=== PATIENT | male | born 1960 | race Caucasian/White ===

== ENCOUNTER 2018-10-09 07:05 | Day surgery (SDC) | payer BC ==
[~2018-10-09] VITALS: Ht 180.3 cm; Wt 99.8 kg
[2018-10-09] MEDS ORDERED: ONDANSETRON HCL 4 MG/2 ML VIAL IVP ONE (09:00)
[2018-10-09] MEDS ORDERED: fentaNYL CITRATE/PF 100 MCG/2 ML AMP IVP ONE (09:00)
[2018-10-09] MEDS ORDERED: ATRACURIUM BESYLATE 100 MG/10 ML VIAL (ATRACURIUM) IV ONE (09:00)
[2018-10-09] MEDS ORDERED: DEXAMETHASONE SOD PHOSPHATE 4 MG/ML VIAL IVP ONE (09:00)
[2018-10-09] MEDS ORDERED: PROPOFOL 200MG/ 20ML VIAL (DIPRIVAN) IV ONE (09:00)
[2018-10-09] MEDS ORDERED: LR 500 ML IV.SOLN IV ONE (09:00)
[2018-10-09] MEDS ORDERED: SEVOFLURANE 15 MIN GAS INH ONE (09:00)
[2018-10-09] MEDS ORDERED: MIDAZOLAM HCL 5 MG/5 ML VIAL IVP ONE (09:00)
[2018-10-09] MEDS ORDERED: LR 1,000 ML IV SCH (09:37)
[2018-10-09] MEDS ORDERED: METOCLOPRAMIDE HCL 10 MG/2 ML VIAL IVP PRN (09:45)
[2018-10-09] MEDS ORDERED: MORPHINE 4 MG/ML INJ. SYRINGE IVP PRN ×3 (09:45)
[2018-10-09 11:25] VITALS: BP_SYST 142
== END 2018-10-09 11:15 | disposition home or self-care (01) ==
LOC: SMU 07:05 → SDS 07:05
PROVIDERS: ATTEND Otolaryngology
DX: H68.101 Unspecified obstruction of Eustachian tube, right ear (principal); H65.91 Unspecified nonsuppurative otitis media, right ear; Z79.899 Other long term (current) drug therapy; Z98.890 Other specified postprocedural states; Z68.31 Body mass index [BMI] 31.0-31.9, adult; E66.3 Overweight; I10 Essential (primary) hypertension; M19.90 Unspecified osteoarthritis, unspecified site; G62.9 Polyneuropathy, unspecified; K21.9 Gastro-esophageal reflux disease without esophagitis; F17.200 Nicotine dependence, unspecified, uncomplicated
CPT/HCPCS: 69421; J1100; J2250; J2405; J2704; J3010; J7120; L8699